=== PATIENT | male | born 1975 | race Asian ===

== ENCOUNTER 2019-01-26 18:05 | Inpatient (IN) | payer MEDICARE ==
[~2019-01-26] VITALS: Ht 167.6 cm; Wt 90.3 kg
[2019-01-26 19:05] VITALS: BP 117/86
[2019-01-26] MEDS ORDERED: PNEUMOCOCCAL VACCINE POLYVALENT 0.5 ML VIAL [PPSV23] IM ONE (20:15)
[2019-01-26] MEDS ORDERED: SENNA 187 MG TABLET PO PRN (20:30)
[2019-01-26] MEDS: ATORVASTATIN CALCIUM 40 MG TABLET PO SCH (21:57)
[2019-01-26] MEDS: CARVEDILOL 25 MG TABLET PO SCH (21:57)
[2019-01-26] MEDS: MELATONIN 5 MG TABLET PO PRN (21:58)
[2019-01-26] MEDS: DOCUSATE SODIUM 250 MG CAPSULE PO SCH (21:58)
[2019-01-26] MEDS: LevETIRAcetam 250 MG TABLET PO SCH (21:58)
[2019-01-26] MEDS: DOXAZOSIN MESYLATE 2 MG TABLET PO SCH (21:58)
[2019-01-26 23:43] VITALS: BP 123/71
[2019-01-27 06:10] LABS: BASOPHILS % (AUTO) 0.7 % (0.0-2.0); EOSINOPHILS % (AUTO) 4.3 % (1.0-6.0); HEMATOCRIT 36.1 % (41-53); HEMOGLOBIN 11.9 g/dL (13.5-17.5); LYMPHOCYTES # (AUTO) 1.5 K/uL (1.0-4.8); LYMPHOCYTES % (AUTO) 17.1 % (22.0-44.0); MEAN CORPUSCULAR HEMOGLOBIN 26.4 pg (26.0-34.0); MEAN CORPUSCULAR HGB CONC 33.1 G/dL (31.0-37.0); MEAN CORPUSCULAR VOLUME 80 fL (80-100); MONOCYTES # (AUTO) 0.5 K/uL (0.1-1.0); NEUTROPHILS # (AUTO) 6.2 K/uL (1.8-7.7); NEUTROPHILS % (AUTO) 71.9 % (40.0-70.0); PLATELET COUNT (AUTO) 261 K/uL (150-450); RED BLOOD CELL COUNT(AUTO) 4.53 MIL/uL (4.50-5.90); RED CELL DISTRIBUTION WIDTH 14.2 % (11.5-14.5)
[2019-01-27 06:38] LABS: ALANINE AMINOTRANSFERASE 39 U/L (12-78); ALBUMIN 3.4 g/dL (3.4-5.0); ALKALINE PHOSPHATASE 113 U/L (46-116); ANION GAP 8 mmol/L (8-16); ASPARTATE AMINOTRANSFERASE 19 U/L (15-37); BILIRUBIN,TOTAL 0.4 mg/dL (0.1-1.0); CALCIUM, TOTAL 9.2 mg/dL (8.8-10.5); CARBON DIOXIDE 29 mmol/L (22-29); CHLORIDE 104 mmol/L (98-107); CREATININE 1.07 mg/dL (0.60-1.30); GLOMERULAR FILTR. RATE CALC > 60 mL/min (>60); GLUCOSE,RANDOM 81 mg/dL (70-110); POTASSIUM 3.4 mmol/L (3.5-5.1); SODIUM SERUM 141 mmol/L (136-145); TOTAL PROTEIN, SERUM 7.8 g/dL (6.4-8.2); UREA NITROGEN, BLOOD 16 mg/dL (7-18)
[2019-01-27 07:55] VITALS: BP 111/76
[2019-01-27 08:10] VITALS: BP 121/76
[2019-01-27] MEDS: CARVEDILOL 25 MG TABLET PO SCH ×2 (08:10→21:00)
[2019-01-27] MEDS: PRENATAL VIT#96/FERROUS FUM/FA TABLET PO SCH (08:10)
[2019-01-27] MEDS: LOSARTAN POTASSIUM 50 MG TABLET PO SCH (08:11)
[2019-01-27] MEDS: LevETIRAcetam 250 MG TABLET PO SCH ×2 (08:11→20:34)
[2019-01-27] MEDS: AmLODIPine BESYLATE 10 MG TABLET PO SCH (08:11)
[2019-01-27] MEDS ORDERED: ATORVASTATIN CALCIUM 40 MG TABLET PO SCH (09:00)
[2019-01-27] MEDS ORDERED: DOXAZOSIN MESYLATE 2 MG TABLET PO SCH (09:00)
[2019-01-27 12:39] LABS: GLUCOMETER DEV NAME(LOC) 2WR.2; GLUCOSE,POINT OF CARE 89 MG/DL (70-110)
[2019-01-27] MEDS: POTASSIUM CHLORIDE 20 MEQ ER TABLET PO SCH ×2 (13:46→20:34)
[2019-01-27 15:59] LABS: GLUCOMETER DEV NAME(LOC) 2WR.2; GLUCOSE,POINT OF CARE 82 MG/DL (70-110)
[2019-01-27 16:01] VITALS: BP 122/64
[2019-01-27 20:26] VITALS: BP 99/58
[2019-01-27] MEDS: DOCUSATE SODIUM 250 MG CAPSULE PO SCH (20:34)
[2019-01-27] MEDS: ATORVASTATIN CALCIUM 40 MG TABLET PO SCH (20:34)
[2019-01-27] MEDS: COLD CREAM, SKIN EMOLLIENT 340 GM JAR TP SCH (20:36)
[2019-01-27] MEDS: DOXAZOSIN MESYLATE 2 MG TABLET PO SCH (21:00)
[2019-01-27] MEDS: MELATONIN 5 MG TABLET PO PRN (21:22)
[2019-01-27 21:29] LABS: GLUCOMETER DEV NAME(LOC) 2WR.2; GLUCOSE,POINT OF CARE 130 MG/DL (70-110)
[2019-01-27 23:22] VITALS: BP 96/58
[2019-01-28] MEDS: PANTOPRAZOLE SODIUM 40 MG DR TABLET PO SCH (05:55)
[2019-01-28 06:20] LABS: GLUCOMETER DEV NAME(LOC) 2WR.1; GLUCOSE,POINT OF CARE 88 MG/DL (70-110)
[2019-01-28 06:44] LABS: BASOPHILS % (AUTO) 0.5 % (0.0-2.0); EOSINOPHILS % (AUTO) 4.3 % (1.0-6.0); HEMATOCRIT 36.3 % (41-53); HEMOGLOBIN 12.1 g/dL (13.5-17.5); LYMPHOCYTES # (AUTO) 1.5 K/uL (1.0-4.8); MEAN CORPUSCULAR HEMOGLOBIN 26.6 pg (26.0-34.0); MEAN CORPUSCULAR HGB CONC 33.4 G/dL (31.0-37.0); MEAN CORPUSCULAR VOLUME 80 fL (80-100); MONOCYTES # (AUTO) 0.6 K/uL (0.1-1.0); MONOCYTES % (AUTO) 6.7 % (2.0-9.0); NEUTROPHILS # (AUTO) 6.1 K/uL (1.8-7.7); NEUTROPHILS % (AUTO) 71.5 % (40.0-70.0); PLATELET COUNT (AUTO) 264 K/uL (150-450); RED BLOOD CELL COUNT(AUTO) 4.56 MIL/uL (4.50-5.90); RED CELL DISTRIBUTION WIDTH 14.2 % (11.5-14.5)
[2019-01-28 06:59] LABS: HEMOGLOBIN A1C 5.8 % (4.5-6.2)
[2019-01-28 07:18] LABS: ANION GAP 9 mmol/L (8-16); CARBON DIOXIDE 28 mmol/L (22-29); CHLORIDE 104 mmol/L (98-107); CREATININE 0.99 mg/dL (0.60-1.30); GLOMERULAR FILTR. RATE CALC > 60 mL/min (>60); GLUCOSE,RANDOM 82 mg/dL (70-110); SODIUM SERUM 141 mmol/L (136-145); UREA NITROGEN, BLOOD 17 mg/dL (7-18)
[2019-01-28 08:35] VITALS: BP 113/69
[2019-01-28] MEDS: LOSARTAN POTASSIUM 50 MG TABLET PO SCH (09:00)
[2019-01-28] MEDS: COLD CREAM, SKIN EMOLLIENT 340 GM JAR TP SCH ×2 (09:00→20:23)
[2019-01-28] MEDS: CARVEDILOL 25 MG TABLET PO SCH ×2 (09:00→20:23)
[2019-01-28] MEDS: PRENATAL VIT#96/FERROUS FUM/FA TABLET PO SCH (09:48)
[2019-01-28] MEDS: AmLODIPine BESYLATE 10 MG TABLET PO SCH (09:48)
[2019-01-28] MEDS: LevETIRAcetam 250 MG TABLET PO SCH ×2 (09:48→20:23)
[2019-01-28 13:59] VITALS: BP 103/65
[2019-01-28 15:52] VITALS: BP 115/74
[2019-01-28 17:54] LABS: GLUCOMETER DEV NAME(LOC) 2WR.1; GLUCOSE,POINT OF CARE 72 MG/DL (70-110)
[2019-01-28 20:20] VITALS: BP 118/70
[2019-01-28] MEDS: ATORVASTATIN CALCIUM 40 MG TABLET PO SCH (20:23)
[2019-01-28] MEDS: DOXAZOSIN MESYLATE 2 MG TABLET PO SCH (20:23)
[2019-01-28] MEDS: DOCUSATE SODIUM 250 MG CAPSULE PO SCH (20:23)
[2019-01-28] MEDS: MELATONIN 5 MG TABLET PO PRN (22:28)
[2019-01-28 23:36] VITALS: BP 111/71
[2019-01-29] MEDS: PANTOPRAZOLE SODIUM 40 MG DR TABLET PO SCH (06:19)
[2019-01-29 06:30] LABS: GLUCOMETER DEV NAME(LOC) 2WR.1; GLUCOSE,POINT OF CARE 81 MG/DL (70-110)
[2019-01-29 07:10] VITALS: BP 118/70
[2019-01-29] MEDS: LevETIRAcetam 250 MG TABLET PO SCH ×2 (09:36→20:11)
[2019-01-29] MEDS: LOSARTAN POTASSIUM 50 MG TABLET PO SCH (09:36)
[2019-01-29] MEDS: CARVEDILOL 25 MG TABLET PO SCH ×2 (09:36→20:12)
[2019-01-29] MEDS: AmLODIPine BESYLATE 10 MG TABLET PO SCH (09:37)
[2019-01-29] MEDS: MULTIVITAMINS WITH MINERALS, THERAPEUTIC TABLET PO SCH (09:38)
[2019-01-29] MEDS: COLD CREAM, SKIN EMOLLIENT 340 GM JAR TP SCH ×2 (09:39→20:12)
[2019-01-29] MEDS ORDERED: POLYETHYLENE GLYCOL 3350 17 GM PACKET PO PRN (09:45)
[2019-01-29 09:54] LABS: APPEARANCE,URINE CLOUDY (CLEAR); BILIRUBIN,URINE NEGATIVE (NEGATIVE); GLUCOSE, URINE (UA) NEGATIVE (NEGATIVE); KETONES,URINE NEGATIVE (NEGATIVE); NITRATE,URINE POSITIVE (NEGATIVE); PROTEIN,URINE POS 1+ (NEGATIVE)
[2019-01-29 10:07] LABS: LEUKOCYTE ESTERASE ,URINE MODERATE (NEGATIVE)
[2019-01-29 10:08] LABS: BACTERIA,URINE Many /HPF (None Seen); OCCULT BLOOD,URINE TRACE (NEGATIVE); RBC,URINE 0-2 /HPF (0-2)
[2019-01-29] MEDS ORDERED: METF-960 PO (11:36)
[2019-01-29] MEDS ORDERED: LOSA50TA64 PO (11:36)
[2019-01-29] MEDS ORDERED: CARV25 PO (11:36)
[2019-01-29] MEDS ORDERED: PRAV40TA4 PO (11:36)
[2019-01-29] MEDS ORDERED: AMLO-512 PO (11:36)
[2019-01-29 15:07] VITALS: BP 115/70
[2019-01-29] MEDS: ACETAMINOPHEN 325 MG TABLET PO PRN (17:21)
[2019-01-29 17:40] LABS: GLUCOMETER DEV NAME(LOC) 2WR.1; GLUCOSE,POINT OF CARE 83 MG/DL (70-110)
[2019-01-29 20:06] VITALS: BP 115/83
[2019-01-29] MEDS: DOXAZOSIN MESYLATE 2 MG TABLET PO SCH (20:11)
[2019-01-29] MEDS: SENNA 187 MG TABLET PO SCH (20:11)
[2019-01-29] MEDS: MELATONIN 5 MG TABLET PO PRN (20:12)
[2019-01-29] MEDS: ATORVASTATIN CALCIUM 40 MG TABLET PO SCH (20:12)
[2019-01-29] MEDS: DOCUSATE SODIUM 250 MG CAPSULE PO SCH (20:12)
[2019-01-29] MEDS: SULFAMETHOX/TRIMETH DS 800-160 MG/TABLET PO SCH (20:12)
[2019-01-29 23:16] VITALS: BP 109/63
[2019-01-30 05:49] LABS: GLUCOMETER DEV NAME(LOC) 2WR.2; GLUCOSE,POINT OF CARE 88 MG/DL (70-110)
[2019-01-30] MEDS: PANTOPRAZOLE SODIUM 40 MG DR TABLET PO SCH (06:07)
[2019-01-30 06:23] LABS: BASOPHILS % (AUTO) 0.2 % (0.0-2.0); EOSINOPHILS % (AUTO) 0.9 % (1.0-6.0); HEMATOCRIT 33.3 % (41-53); LYMPHOCYTES # (AUTO) 1.1 K/uL (1.0-4.8); LYMPHOCYTES % (AUTO) 8.7 % (22.0-44.0); MEAN CORPUSCULAR HEMOGLOBIN 26.4 pg (26.0-34.0); MEAN CORPUSCULAR VOLUME 80 fL (80-100); MONOCYTES % (AUTO) 8.1 % (2.0-9.0); NEUTROPHILS # (AUTO) 10.4 K/uL (1.8-7.7); NEUTROPHILS % (AUTO) 82.1 % (40.0-70.0); PLATELET COUNT (AUTO) 229 K/uL (150-450); RED BLOOD CELL COUNT(AUTO) 4.17 MIL/uL (4.50-5.90); RED CELL DISTRIBUTION WIDTH 14.4 % (11.5-14.5)
[2019-01-30 06:36] LABS: CREATININE 1.33 mg/dL (0.60-1.30); POTASSIUM 3.7 mmol/L (3.5-5.1)
[2019-01-30 08:30] VITALS: BP 116/75
[2019-01-30] MEDS: LevETIRAcetam 250 MG TABLET PO SCH ×2 (08:34→20:47)
[2019-01-30] MEDS: DOCUSATE SODIUM 250 MG CAPSULE PO SCH ×2 (08:34→20:48)
[2019-01-30] MEDS: ACETAMINOPHEN 325 MG TABLET PO PRN (08:34)
[2019-01-30] MEDS: AmLODIPine BESYLATE 10 MG TABLET PO SCH (08:35)
[2019-01-30] MEDS: LOSARTAN POTASSIUM 50 MG TABLET PO SCH (08:35)
[2019-01-30] MEDS: COLD CREAM, SKIN EMOLLIENT 340 GM JAR TP SCH ×2 (08:35→20:48)
[2019-01-30] MEDS: MULTIVITAMINS WITH MINERALS, THERAPEUTIC TABLET PO SCH (08:35)
[2019-01-30] MEDS: CARVEDILOL 25 MG TABLET PO SCH ×2 (08:35→20:48)
[2019-01-30] MEDS: SULFAMETHOX/TRIMETH DS 800-160 MG/TABLET PO SCH ×2 (08:35→20:48)
[2019-01-30 16:30] VITALS: BP 103/68
[2019-01-30] MEDS ORDERED: DOXA2TAB PO (16:36)
[2019-01-30] MEDS ORDERED: ATOR40TA28 PO (16:37)
[2019-01-30 17:19] LABS: GLUCOMETER DEV NAME(LOC) 2WR.2; GLUCOSE,POINT OF CARE 87 MG/DL (70-110)
[2019-01-30 20:45] VITALS: BP 104/63
[2019-01-30] MEDS: ATORVASTATIN CALCIUM 40 MG TABLET PO SCH (20:47)
[2019-01-30] MEDS: DOXAZOSIN MESYLATE 2 MG TABLET PO SCH (20:47)
[2019-01-30] MEDS: MELATONIN 5 MG TABLET PO PRN (20:47)
[2019-01-30] MEDS: SENNA 187 MG TABLET PO SCH (20:48)
[2019-01-30 21:12] LABS: GLUCOMETER DEV NAME(LOC) 2WR.1; GLUCOSE,POINT OF CARE 73 MG/DL (70-110)
[2019-01-31 04:45] VITALS: BP 95/57
[2019-01-31] MEDS: PANTOPRAZOLE SODIUM 40 MG DR TABLET PO SCH (06:01)
[2019-01-31 06:15] LABS: GLUCOMETER DEV NAME(LOC) 2WR.2; GLUCOSE,POINT OF CARE 83 MG/DL (70-110)
[2019-01-31 08:03] VITALS: BP 96/55
[2019-01-31] MEDS: SULFAMETHOX/TRIMETH DS 800-160 MG/TABLET PO SCH (08:17)
[2019-01-31] MEDS: MULTIVITAMINS WITH MINERALS, THERAPEUTIC TABLET PO SCH (08:17)
[2019-01-31] MEDS: DOCUSATE SODIUM 250 MG CAPSULE PO SCH ×2 (08:17→20:22)
[2019-01-31] MEDS: LevETIRAcetam 250 MG TABLET PO SCH ×2 (08:17→20:23)
[2019-01-31] MEDS: AmLODIPine BESYLATE 10 MG TABLET PO SCH (09:00)
[2019-01-31] MEDS: CARVEDILOL 25 MG TABLET PO SCH ×2 (09:00→21:18)
[2019-01-31] MEDS: LOSARTAN POTASSIUM 50 MG TABLET PO SCH (09:00)
[2019-01-31] MEDS: COLD CREAM, SKIN EMOLLIENT 340 GM JAR TP SCH ×2 (10:00→20:23)
[2019-01-31] MEDS: CIPROFLOXACIN HCL 250 MG TABLET PO SCH ×2 (10:17→20:22)
[2019-01-31 17:14] LABS: GLUCOMETER DEV NAME(LOC) 2WR.1; GLUCOSE,POINT OF CARE 96 MG/DL (70-110)
[2019-01-31 17:16] VITALS: BP 101/53
[2019-01-31 20:20] VITALS: BP 101/57
[2019-01-31] MEDS: ATORVASTATIN CALCIUM 40 MG TABLET PO SCH (20:22)
[2019-01-31] MEDS: SENNA 187 MG TABLET PO SCH (20:23)
[2019-01-31 21:16] VITALS: BP 121/77
[2019-01-31] MEDS: DOXAZOSIN MESYLATE 2 MG TABLET PO SCH (21:18)
[2019-01-31] MEDS: MELATONIN 5 MG TABLET PO PRN (23:03)
[2019-01-31 23:06] VITALS: BP 110/67
[2019-02-01] MEDS: PANTOPRAZOLE SODIUM 40 MG DR TABLET PO SCH (05:55)
[2019-02-01 06:14] LABS: GLUCOMETER DEV NAME(LOC) 2WR.2; GLUCOSE,POINT OF CARE 84 MG/DL (70-110)
[2019-02-01 06:37] LABS: BASOPHILS % (AUTO) 0.3 % (0.0-2.0); EOSINOPHILS % (AUTO) 3.7 % (1.0-6.0); HEMOGLOBIN 10.7 g/dL (13.5-17.5); LYMPHOCYTES # (AUTO) 0.9 K/uL (1.0-4.8); LYMPHOCYTES % (AUTO) 11.9 % (22.0-44.0); MEAN CORPUSCULAR HEMOGLOBIN 26.7 pg (26.0-34.0); MEAN CORPUSCULAR HGB CONC 33.4 G/dL (31.0-37.0); MEAN CORPUSCULAR VOLUME 80 fL (80-100); MONOCYTES # (AUTO) 0.8 K/uL (0.1-1.0); MONOCYTES % (AUTO) 10.6 % (2.0-9.0); NEUTROPHILS # (AUTO) 5.5 K/uL (1.8-7.7); NEUTROPHILS % (AUTO) 73.5 % (40.0-70.0); PLATELET COUNT (AUTO) 246 K/uL (150-450); RED CELL DISTRIBUTION WIDTH 14.3 % (11.5-14.5)
[2019-02-01 07:00] VITALS: BP 107/70
[2019-02-01] MEDS: CARVEDILOL 25 MG TABLET PO SCH ×2 (08:24→20:16)
[2019-02-01] MEDS: CIPROFLOXACIN HCL 250 MG TABLET PO SCH ×2 (08:24→20:16)
[2019-02-01] MEDS: MULTIVITAMINS WITH MINERALS, THERAPEUTIC TABLET PO SCH (08:24)
[2019-02-01] MEDS: AmLODIPine BESYLATE 5 MG TABLET PO SCH (08:25)
[2019-02-01] MEDS: LOSARTAN POTASSIUM 50 MG TABLET PO SCH (08:25)
[2019-02-01] MEDS: COLD CREAM, SKIN EMOLLIENT 340 GM JAR TP SCH ×2 (08:25→20:16)
[2019-02-01] MEDS: DOCUSATE SODIUM 250 MG CAPSULE PO SCH ×2 (08:25→20:16)
[2019-02-01] MEDS: LevETIRAcetam 250 MG TABLET PO SCH ×2 (08:25→20:16)
[2019-02-01 15:06] VITALS: BP 113/80
[2019-02-01 17:50] LABS: GLUCOMETER DEV NAME(LOC) 2WR.1; GLUCOSE,POINT OF CARE 71 MG/DL (70-110)
[2019-02-01 20:14] VITALS: BP 118/73
[2019-02-01] MEDS: ATORVASTATIN CALCIUM 40 MG TABLET PO SCH (20:16)
[2019-02-01] MEDS: SENNA 187 MG TABLET PO SCH (20:16)
[2019-02-01] MEDS: DOXAZOSIN MESYLATE 2 MG TABLET PO SCH (20:16)
[2019-02-01] MEDS: MELATONIN 5 MG TABLET PO PRN (22:01)
[2019-02-01 23:38] VITALS: BP 110/67
[2019-02-02] MEDS: PANTOPRAZOLE SODIUM 40 MG DR TABLET PO SCH (06:08)
[2019-02-02 06:35] LABS: GLUCOMETER DEV NAME(LOC) 2WR.1; GLUCOSE,POINT OF CARE 82 MG/DL (70-110)
[2019-02-02 07:56] VITALS: BP 115/68
[2019-02-02] MEDS: LevETIRAcetam 250 MG TABLET PO SCH ×2 (10:14→20:38)
[2019-02-02] MEDS: MULTIVITAMINS WITH MINERALS, THERAPEUTIC TABLET PO SCH (10:14)
[2019-02-02] MEDS: LOSARTAN POTASSIUM 50 MG TABLET PO SCH (10:14)
[2019-02-02] MEDS: DOCUSATE SODIUM 250 MG CAPSULE PO SCH ×2 (10:14→20:39)
[2019-02-02] MEDS: CIPROFLOXACIN HCL 250 MG TABLET PO SCH ×2 (10:14→20:39)
[2019-02-02] MEDS: COLD CREAM, SKIN EMOLLIENT 340 GM JAR TP SCH ×2 (10:14→20:39)
[2019-02-02] MEDS: AmLODIPine BESYLATE 5 MG TABLET PO SCH (10:14)
[2019-02-02] MEDS: CARVEDILOL 25 MG TABLET PO SCH ×2 (10:14→20:38)
[2019-02-02 16:23] VITALS: BP 111/71
[2019-02-02 17:54] LABS: GLUCOMETER DEV NAME(LOC) 2WR.1; GLUCOSE,POINT OF CARE 80 MG/DL (70-110)
[2019-02-02 20:34] VITALS: BP 127/68
[2019-02-02] MEDS: DOXAZOSIN MESYLATE 2 MG TABLET PO SCH (20:38)
[2019-02-02] MEDS: SENNA 187 MG TABLET PO SCH (20:38)
[2019-02-02] MEDS: ATORVASTATIN CALCIUM 40 MG TABLET PO SCH (20:38)
[2019-02-02] MEDS: MELATONIN 5 MG TABLET PO PRN (20:39)
[2019-02-03 05:20] VITALS: BP 112/71
[2019-02-03] MEDS: PANTOPRAZOLE SODIUM 40 MG DR TABLET PO SCH (05:56)
[2019-02-03 05:59] LABS: GLUCOMETER DEV NAME(LOC) 2WR.2; GLUCOSE,POINT OF CARE 79 MG/DL (70-110)
[2019-02-03 07:52] VITALS: BP 126/75
[2019-02-03] MEDS: MULTIVITAMINS WITH MINERALS, THERAPEUTIC TABLET PO SCH (08:16)
[2019-02-03] MEDS: CARVEDILOL 25 MG TABLET PO SCH ×2 (08:16→21:04)
[2019-02-03] MEDS: AmLODIPine BESYLATE 5 MG TABLET PO SCH (08:16)
[2019-02-03] MEDS: DOCUSATE SODIUM 250 MG CAPSULE PO SCH ×2 (08:16→21:04)
[2019-02-03] MEDS: LOSARTAN POTASSIUM 50 MG TABLET PO SCH (08:16)
[2019-02-03] MEDS: COLD CREAM, SKIN EMOLLIENT 340 GM JAR TP SCH ×2 (08:17→21:05)
[2019-02-03] MEDS: LevETIRAcetam 250 MG TABLET PO SCH ×2 (08:17→21:04)
[2019-02-03] MEDS: CIPROFLOXACIN HCL 250 MG TABLET PO SCH ×2 (08:17→21:04)
[2019-02-03 15:30] VITALS: BP 108/62
[2019-02-03 20:30] VITALS: BP 144/94
[2019-02-03] MEDS: SENNA 187 MG TABLET PO SCH (21:04)
[2019-02-03] MEDS: ATORVASTATIN CALCIUM 40 MG TABLET PO SCH (21:04)
[2019-02-03] MEDS: DOXAZOSIN MESYLATE 2 MG TABLET PO SCH (21:04)
[2019-02-03] MEDS: MELATONIN 5 MG TABLET PO PRN (23:33)
[2019-02-03 23:35] VITALS: BP 134/81
[2019-02-04] MEDS: PANTOPRAZOLE SODIUM 40 MG DR TABLET PO SCH (06:44)
[2019-02-04 08:53] VITALS: BP 120/81
[2019-02-04] MEDS: AmLODIPine BESYLATE 5 MG TABLET PO SCH (09:27)
[2019-02-04] MEDS: DOCUSATE SODIUM 250 MG CAPSULE PO SCH ×2 (09:27→20:18)
[2019-02-04] MEDS: LevETIRAcetam 250 MG TABLET PO SCH ×2 (09:27→20:18)
[2019-02-04] MEDS: CARVEDILOL 25 MG TABLET PO SCH ×2 (09:27→20:19)
[2019-02-04] MEDS: CIPROFLOXACIN HCL 250 MG TABLET PO SCH ×2 (09:27→20:18)
[2019-02-04] MEDS: MULTIVITAMINS WITH MINERALS, THERAPEUTIC TABLET PO SCH (09:27)
[2019-02-04] MEDS: LOSARTAN POTASSIUM 50 MG TABLET PO SCH (09:28)
[2019-02-04] MEDS: COLD CREAM, SKIN EMOLLIENT 340 GM JAR TP SCH ×2 (09:28→20:19)
[2019-02-04 15:00] VITALS: BP 126/72
[2019-02-04 20:17] VITALS: BP 142/84
[2019-02-04] MEDS: ATORVASTATIN CALCIUM 40 MG TABLET PO SCH (20:18)
[2019-02-04] MEDS: DOXAZOSIN MESYLATE 2 MG TABLET PO SCH (20:18)
[2019-02-04] MEDS: SENNA 187 MG TABLET PO SCH (20:18)
[2019-02-04] MEDS: MELATONIN 5 MG TABLET PO PRN (22:43)
[2019-02-05] VITALS: BP 151/88
[2019-02-05] MEDS: PANTOPRAZOLE SODIUM 40 MG DR TABLET PO SCH (05:44)
[2019-02-05 07:00] VITALS: BP 134/91
[2019-02-05] MEDS: LOSARTAN POTASSIUM 50 MG TABLET PO SCH (09:18)
[2019-02-05] MEDS: COLD CREAM, SKIN EMOLLIENT 340 GM JAR TP SCH ×2 (09:18→20:27)
[2019-02-05] MEDS: LevETIRAcetam 250 MG TABLET PO SCH ×2 (09:18→20:27)
[2019-02-05] MEDS: MULTIVITAMINS WITH MINERALS, THERAPEUTIC TABLET PO SCH (09:18)
[2019-02-05] MEDS: AmLODIPine BESYLATE 5 MG TABLET PO SCH (09:18)
[2019-02-05] MEDS: DOCUSATE SODIUM 250 MG CAPSULE PO SCH ×2 (09:19→20:27)
[2019-02-05] MEDS: CIPROFLOXACIN HCL 250 MG TABLET PO SCH ×2 (09:19→20:27)
[2019-02-05] MEDS: CARVEDILOL 25 MG TABLET PO SCH ×2 (09:19→20:27)
[2019-02-05 15:53] VITALS: BP 117/71
[2019-02-05 20:21] VITALS: BP 143/93
[2019-02-05] MEDS: ATORVASTATIN CALCIUM 40 MG TABLET PO SCH (20:27)
[2019-02-05] MEDS: DOXAZOSIN MESYLATE 2 MG TABLET PO SCH (20:27)
[2019-02-05] MEDS: SENNA 187 MG TABLET PO SCH (20:27)
[2019-02-05] MEDS: MELATONIN 5 MG TABLET PO PRN (22:39)
[2019-02-06] VITALS: BP 147/84
[2019-02-06] MEDS: PANTOPRAZOLE SODIUM 40 MG DR TABLET PO SCH (06:34)
[2019-02-06 07:50] VITALS: BP 131/85
[2019-02-06] MEDS: CIPROFLOXACIN HCL 250 MG TABLET PO SCH ×2 (09:10→21:14)
[2019-02-06] MEDS: AmLODIPine BESYLATE 5 MG TABLET PO SCH (09:10)
[2019-02-06] MEDS: MULTIVITAMINS WITH MINERALS, THERAPEUTIC TABLET PO SCH (09:10)
[2019-02-06] MEDS: LOSARTAN POTASSIUM 50 MG TABLET PO SCH (09:10)
[2019-02-06] MEDS: CARVEDILOL 25 MG TABLET PO SCH ×2 (09:10→21:00)
[2019-02-06] MEDS: LevETIRAcetam 250 MG TABLET PO SCH (09:10)
[2019-02-06] MEDS: DOCUSATE SODIUM 250 MG CAPSULE PO SCH ×2 (09:10→21:15)
[2019-02-06] MEDS: COLD CREAM, SKIN EMOLLIENT 340 GM JAR TP SCH ×2 (09:11→21:15)
[2019-02-06 15:44] VITALS: BP 135/85
[2019-02-06] MEDS: DOXAZOSIN MESYLATE 2 MG TABLET PO SCH (21:00)
[2019-02-06 21:13] VITALS: BP 135/78
[2019-02-06] MEDS: ATORVASTATIN CALCIUM 40 MG TABLET PO SCH (21:14)
[2019-02-06] MEDS: SENNA 187 MG TABLET PO SCH (21:15)
[2019-02-06] MEDS: MELATONIN 5 MG TABLET PO PRN (21:15)
[2019-02-07 05:00] VITALS: BP 144/87
[2019-02-07] MEDS: PANTOPRAZOLE SODIUM 40 MG DR TABLET PO SCH (05:55)
[2019-02-07 07:30] VITALS: BP 142/84
[2019-02-07] MEDS: CARVEDILOL 25 MG TABLET PO SCH ×3 (09:00→20:36)
[2019-02-07] MEDS: AmLODIPine BESYLATE 5 MG TABLET PO SCH (09:28)
[2019-02-07] MEDS: MULTIVITAMINS WITH MINERALS, THERAPEUTIC TABLET PO SCH (09:29)
[2019-02-07] MEDS: LOSARTAN POTASSIUM 50 MG TABLET PO SCH (09:29)
[2019-02-07] MEDS: DOCUSATE SODIUM 250 MG CAPSULE PO SCH ×2 (09:29→20:36)
[2019-02-07] MEDS: COLD CREAM, SKIN EMOLLIENT 340 GM JAR TP SCH ×2 (09:30→20:36)
[2019-02-07 11:12] LABS: APPEARANCE,URINE CLEAR (CLEAR); BILIRUBIN,URINE NEGATIVE (NEGATIVE); GLUCOSE, URINE (UA) NEGATIVE (NEGATIVE); KETONES,URINE NEGATIVE (NEGATIVE); LEUKOCYTE ESTERASE ,URINE NEGATIVE (NEGATIVE); NITRATE,URINE NEGATIVE (NEGATIVE); OCCULT BLOOD,URINE NEGATIVE (NEGATIVE); PROTEIN,URINE NEGATIVE (NEGATIVE); UROBILINOGEN,URINE 0.2 mg/dL (<=1.0)
[2019-02-07 16:34] VITALS: BP 137/99
[2019-02-07] MEDS ORDERED: ATOR40TA28 PO (17:53)
[2019-02-07] MEDS ORDERED: PANT40TA25 PO (17:53)
[2019-02-07] MEDS ORDERED: AMLO-511 PO (17:54)
[2019-02-07] MEDS ORDERED: DOCU250C91 PO (17:54)
[2019-02-07] MEDS ORDERED: MULT-1239 PO (17:54)
[2019-02-07 20:24] VITALS: BP 142/95
[2019-02-07] MEDS: SENNA 187 MG TABLET PO SCH (20:36)
[2019-02-07] MEDS: DOXAZOSIN MESYLATE 2 MG TABLET PO SCH (20:36)
[2019-02-07] MEDS: MELATONIN 5 MG TABLET PO PRN (20:36)
[2019-02-07] MEDS: ATORVASTATIN CALCIUM 40 MG TABLET PO SCH (20:36)
[2019-02-07 23:32] VITALS: BP 125/79
[2019-02-08] MEDS: PANTOPRAZOLE SODIUM 40 MG DR TABLET PO SCH (06:02)
[2019-02-08 08:35] VITALS: BP 132/91
[2019-02-08] MEDS: CARVEDILOL 25 MG TABLET PO SCH ×2 (09:36→20:22)
[2019-02-08] MEDS: COLD CREAM, SKIN EMOLLIENT 340 GM JAR TP SCH ×2 (09:36→20:22)
[2019-02-08] MEDS: LOSARTAN POTASSIUM 50 MG TABLET PO SCH (09:36)
[2019-02-08] MEDS: DOCUSATE SODIUM 250 MG CAPSULE PO SCH ×2 (09:36→20:22)
[2019-02-08] MEDS: AmLODIPine BESYLATE 5 MG TABLET PO SCH (09:36)
[2019-02-08] MEDS: MULTIVITAMINS WITH MINERALS, THERAPEUTIC TABLET PO SCH (09:36)
[2019-02-08 15:15] VITALS: BP 122/77
[2019-02-08 20:16] VITALS: BP 136/81
[2019-02-08] MEDS: SENNA 187 MG TABLET PO SCH (20:22)
[2019-02-08] MEDS: ATORVASTATIN CALCIUM 40 MG TABLET PO SCH (20:22)
[2019-02-08] MEDS: DOXAZOSIN MESYLATE 2 MG TABLET PO SCH (20:22)
[2019-02-08 23:58] VITALS: BP 133/86
[2019-02-08] MEDS: MELATONIN 5 MG TABLET PO PRN (23:58)
[2019-02-09] MEDS: PANTOPRAZOLE SODIUM 40 MG DR TABLET PO SCH (06:37)
[2019-02-09 07:55] VITALS: BP 135/87
[2019-02-09] MEDS: DOCUSATE SODIUM 250 MG CAPSULE PO SCH ×2 (09:13→21:51)
[2019-02-09] MEDS: AmLODIPine BESYLATE 5 MG TABLET PO SCH (09:13)
[2019-02-09] MEDS: CARVEDILOL 25 MG TABLET PO SCH ×2 (09:13→21:00)
[2019-02-09] MEDS: MULTIVITAMINS WITH MINERALS, THERAPEUTIC TABLET PO SCH (09:13)
[2019-02-09] MEDS: LOSARTAN POTASSIUM 50 MG TABLET PO SCH (09:13)
[2019-02-09] MEDS: COLD CREAM, SKIN EMOLLIENT 340 GM JAR TP SCH ×2 (09:14→21:52)
[2019-02-09 16:25] VITALS: BP 147/55
[2019-02-09] MEDS: DOXAZOSIN MESYLATE 2 MG TABLET PO SCH (21:51)
[2019-02-09] MEDS: ATORVASTATIN CALCIUM 40 MG TABLET PO SCH (21:51)
[2019-02-09] MEDS: SENNA 187 MG TABLET PO SCH (21:51)
[2019-02-09 21:59] VITALS: BP 154/93
[2019-02-10 00:58] VITALS: BP 147/86
[2019-02-10] MEDS: PANTOPRAZOLE SODIUM 40 MG DR TABLET PO SCH (06:02)
[2019-02-10 07:45] VITALS: BP 147/81
[2019-02-10] MEDS: AmLODIPine BESYLATE 5 MG TABLET PO SCH (09:54)
[2019-02-10] MEDS: CARVEDILOL 25 MG TABLET PO SCH ×2 (09:54→21:25)
[2019-02-10] MEDS: LOSARTAN POTASSIUM 50 MG TABLET PO SCH (09:54)
[2019-02-10] MEDS: MULTIVITAMINS WITH MINERALS, THERAPEUTIC TABLET PO SCH (09:54)
[2019-02-10] MEDS: DOCUSATE SODIUM 250 MG CAPSULE PO SCH ×2 (09:54→20:41)
[2019-02-10] MEDS: COLD CREAM, SKIN EMOLLIENT 340 GM JAR TP SCH ×2 (09:58→20:45)
[2019-02-10 15:40] VITALS: BP 144/87
[2019-02-10 20:34] VITALS: BP 153/89
[2019-02-10] MEDS: SENNA 187 MG TABLET PO SCH (20:40)
[2019-02-10] MEDS: ATORVASTATIN CALCIUM 40 MG TABLET PO SCH (20:40)
[2019-02-10] MEDS: MELATONIN 5 MG TABLET PO PRN (20:41)
[2019-02-10 21:20] VITALS: BP 132/85
[2019-02-10] MEDS: DOXAZOSIN MESYLATE 2 MG TABLET PO SCH (21:25)
[2019-02-11 05:00] VITALS: BP 145/78
[2019-02-11] MEDS: PANTOPRAZOLE SODIUM 40 MG DR TABLET PO SCH (05:52)
[2019-02-11 06:40] LABS: ANION GAP 9 mmol/L (8-16); CALCIUM, TOTAL 9.3 mg/dL (8.8-10.5); CARBON DIOXIDE 32 mmol/L (22-29); CHLORIDE 99 mmol/L (98-107); CREATININE 1.08 mg/dL (0.60-1.30); GLOMERULAR FILTR. RATE CALC > 60 mL/min (>60); GLUCOSE,RANDOM 87 mg/dL (70-110); POTASSIUM 3.8 mmol/L (3.5-5.1); SODIUM SERUM 140 mmol/L (136-145); UREA NITROGEN, BLOOD 16 mg/dL (7-18)
[2019-02-11 06:41] LABS: BASOPHILS % (AUTO) 0.5 % (0.0-2.0); EOSINOPHILS % (AUTO) 4.3 % (1.0-6.0); HEMATOCRIT 36.1 % (41-53); HEMOGLOBIN 11.9 g/dL (13.5-17.5); LYMPHOCYTES # (AUTO) 1.4 K/uL (1.0-4.8); LYMPHOCYTES % (AUTO) 17.6 % (22.0-44.0); MEAN CORPUSCULAR HEMOGLOBIN 26.4 pg (26.0-34.0); MEAN CORPUSCULAR HGB CONC 33.1 G/dL (31.0-37.0); MEAN CORPUSCULAR VOLUME 80 fL (80-100); MONOCYTES # (AUTO) 0.4 K/uL (0.1-1.0); MONOCYTES % (AUTO) 5.7 % (2.0-9.0); NEUTROPHILS # (AUTO) 5.6 K/uL (1.8-7.7); NEUTROPHILS % (AUTO) 71.9 % (40.0-70.0); PLATELET COUNT (AUTO) 302 K/uL (150-450); RED BLOOD CELL COUNT(AUTO) 4.52 MIL/uL (4.50-5.90); RED CELL DISTRIBUTION WIDTH 14.3 % (11.5-14.5)
[2019-02-11] MEDS: DOCUSATE SODIUM 250 MG CAPSULE PO SCH ×2 (09:00→20:44)
[2019-02-11 09:20] VITALS: BP 124/82
[2019-02-11] MEDS: MULTIVITAMINS WITH MINERALS, THERAPEUTIC TABLET PO SCH (09:54)
[2019-02-11] MEDS: AmLODIPine BESYLATE 5 MG TABLET PO SCH (09:54)
[2019-02-11] MEDS: CARVEDILOL 25 MG TABLET PO SCH ×2 (09:54→20:44)
[2019-02-11] MEDS: LOSARTAN POTASSIUM 50 MG TABLET PO SCH (09:54)
[2019-02-11] MEDS: COLD CREAM, SKIN EMOLLIENT 340 GM JAR TP SCH ×2 (09:55→20:44)
[2019-02-11 15:30] VITALS: BP 120/73
[2019-02-11 20:42] VITALS: BP 152/94
[2019-02-11] MEDS: SENNA 187 MG TABLET PO SCH (20:44)
[2019-02-11] MEDS: DOXAZOSIN MESYLATE 2 MG TABLET PO SCH (20:44)
[2019-02-11] MEDS: ATORVASTATIN CALCIUM 40 MG TABLET PO SCH (20:44)
[2019-02-11] MEDS: MELATONIN 5 MG TABLET PO PRN (20:44)
[2019-02-12 05:00] VITALS: BP 141/80
[2019-02-12] MEDS: PANTOPRAZOLE SODIUM 40 MG DR TABLET PO SCH (05:45)
[2019-02-12 07:17] VITALS: BP 141/79
[2019-02-12] MEDS: CARVEDILOL 25 MG TABLET PO SCH ×2 (08:46→21:14)
[2019-02-12] MEDS: AmLODIPine BESYLATE 5 MG TABLET PO SCH (08:47)
[2019-02-12] MEDS: LOSARTAN POTASSIUM 50 MG TABLET PO SCH (08:47)
[2019-02-12] MEDS: MULTIVITAMINS WITH MINERALS, THERAPEUTIC TABLET PO SCH (08:47)
[2019-02-12] MEDS: DOCUSATE SODIUM 250 MG CAPSULE PO SCH ×2 (08:47→21:13)
[2019-02-12] MEDS: COLD CREAM, SKIN EMOLLIENT 340 GM JAR TP SCH ×2 (08:49→21:14)
[2019-02-12] MEDS: MELATONIN 5 MG TABLET PO PRN (21:14)
[2019-02-12] MEDS: ATORVASTATIN CALCIUM 40 MG TABLET PO SCH (21:14)
[2019-02-12] MEDS: DOXAZOSIN MESYLATE 2 MG TABLET PO SCH (21:14)
[2019-02-12] MEDS: SENNA 187 MG TABLET PO SCH (21:14)
[2019-02-12 21:16] VITALS: BP 148/87
[2019-02-13 05:20] VITALS: BP 138/82
[2019-02-13] MEDS: PANTOPRAZOLE SODIUM 40 MG DR TABLET PO SCH (05:44)
[2019-02-13 07:05] VITALS: BP 141/81
[2019-02-13] MEDS: MULTIVITAMINS WITH MINERALS, THERAPEUTIC TABLET PO SCH (07:46)
[2019-02-13] MEDS: LOSARTAN POTASSIUM 50 MG TABLET PO SCH (07:46)
[2019-02-13] MEDS: CARVEDILOL 25 MG TABLET PO SCH ×2 (07:46→20:01)
[2019-02-13] MEDS: AmLODIPine BESYLATE 5 MG TABLET PO SCH (07:46)
[2019-02-13] MEDS: COLD CREAM, SKIN EMOLLIENT 340 GM JAR TP SCH ×2 (07:46→20:04)
[2019-02-13] MEDS: DOCUSATE SODIUM 250 MG CAPSULE PO SCH ×2 (07:47→20:01)
[2019-02-13 17:30] VITALS: BP 145/97
[2019-02-13] MEDS: ATORVASTATIN CALCIUM 40 MG TABLET PO SCH (20:01)
[2019-02-13] MEDS: SENNA 187 MG TABLET PO SCH (20:01)
[2019-02-13] MEDS: DOXAZOSIN MESYLATE 2 MG TABLET PO SCH (20:01)
[2019-02-13 23:49] VITALS: BP 125/74
[2019-02-14] MEDS: PANTOPRAZOLE SODIUM 40 MG DR TABLET PO SCH (06:09)
[2019-02-14 07:00] VITALS: BP 126/89
[2019-02-14] MEDS: DOCUSATE SODIUM 250 MG CAPSULE PO SCH ×2 (07:56→21:27)
[2019-02-14] MEDS: AmLODIPine BESYLATE 5 MG TABLET PO SCH (07:56)
[2019-02-14] MEDS: LOSARTAN POTASSIUM 50 MG TABLET PO SCH (07:56)
[2019-02-14] MEDS: MULTIVITAMINS WITH MINERALS, THERAPEUTIC TABLET PO SCH (07:56)
[2019-02-14] MEDS: COLD CREAM, SKIN EMOLLIENT 340 GM JAR TP SCH ×2 (07:56→21:27)
[2019-02-14] MEDS: CARVEDILOL 25 MG TABLET PO SCH ×2 (07:56→21:27)
[2019-02-14 16:08] VITALS: BP 134/80
[2019-02-14 21:25] VITALS: BP 151/99
[2019-02-14] MEDS: ATORVASTATIN CALCIUM 40 MG TABLET PO SCH (21:27)
[2019-02-14] MEDS: DOXAZOSIN MESYLATE 2 MG TABLET PO SCH (21:27)
[2019-02-14] MEDS: SENNA 187 MG TABLET PO SCH (21:27)
[2019-02-15 00:14] VITALS: BP 133/90
[2019-02-15] MEDS: PANTOPRAZOLE SODIUM 40 MG DR TABLET PO SCH (06:05)
[2019-02-15 08:33] VITALS: BP 143/90
[2019-02-15] MEDS: CARVEDILOL 25 MG TABLET PO SCH ×2 (08:47→20:14)
[2019-02-15] MEDS: AmLODIPine BESYLATE 5 MG TABLET PO SCH (08:47)
[2019-02-15] MEDS: MULTIVITAMINS WITH MINERALS, THERAPEUTIC TABLET PO SCH (08:47)
[2019-02-15] MEDS: LOSARTAN POTASSIUM 50 MG TABLET PO SCH (08:47)
[2019-02-15] MEDS: COLD CREAM, SKIN EMOLLIENT 340 GM JAR TP SCH ×2 (08:48→20:16)
[2019-02-15] MEDS: DOCUSATE SODIUM 250 MG CAPSULE PO SCH ×2 (08:48→20:15)
[2019-02-15 15:30] VITALS: BP 122/76
[2019-02-15 20:11] VITALS: BP 131/84
[2019-02-15] MEDS: MELATONIN 5 MG TABLET PO PRN (20:14)
[2019-02-15] MEDS: DOXAZOSIN MESYLATE 2 MG TABLET PO SCH (20:14)
[2019-02-15] MEDS: SENNA 187 MG TABLET PO SCH (20:15)
[2019-02-15] MEDS: ATORVASTATIN CALCIUM 40 MG TABLET PO SCH (20:15)
[2019-02-16] MEDS: PANTOPRAZOLE SODIUM 40 MG DR TABLET PO SCH (05:45)
[2019-02-16 05:52] VITALS: BP 136/88
[2019-02-16 07:10] VITALS: BP 133/73
[2019-02-16] MEDS: CARVEDILOL 25 MG TABLET PO SCH ×2 (08:23→20:28)
[2019-02-16] MEDS: LOSARTAN POTASSIUM 50 MG TABLET PO SCH (08:23)
[2019-02-16] MEDS: AmLODIPine BESYLATE 5 MG TABLET PO SCH (08:23)
[2019-02-16] MEDS: MULTIVITAMINS WITH MINERALS, THERAPEUTIC TABLET PO SCH (08:24)
[2019-02-16] MEDS: COLD CREAM, SKIN EMOLLIENT 340 GM JAR TP SCH ×2 (08:24→20:28)
[2019-02-16] MEDS: DOCUSATE SODIUM 250 MG CAPSULE PO SCH ×2 (08:24→20:28)
[2019-02-16 15:55] VITALS: BP 154/83
[2019-02-16 20:25] VITALS: BP 144/97
[2019-02-16] MEDS: SENNA 187 MG TABLET PO SCH (20:28)
[2019-02-16] MEDS: ATORVASTATIN CALCIUM 40 MG TABLET PO SCH (20:28)
[2019-02-16] MEDS: DOXAZOSIN MESYLATE 2 MG TABLET PO SCH (20:28)
[2019-02-16 23:00] VITALS: BP 135/85
[2019-02-17] MEDS: PANTOPRAZOLE SODIUM 40 MG DR TABLET PO SCH (06:15)
[2019-02-17 07:37] VITALS: BP 136/89
[2019-02-17] MEDS: AmLODIPine BESYLATE 5 MG TABLET PO SCH (08:39)
[2019-02-17] MEDS: LOSARTAN POTASSIUM 50 MG TABLET PO SCH (08:39)
[2019-02-17] MEDS: CARVEDILOL 25 MG TABLET PO SCH ×2 (08:39→20:19)
[2019-02-17] MEDS: COLD CREAM, SKIN EMOLLIENT 340 GM JAR TP SCH ×2 (08:40→20:24)
[2019-02-17] MEDS: MULTIVITAMINS WITH MINERALS, THERAPEUTIC TABLET PO SCH (08:40)
[2019-02-17] MEDS: DOCUSATE SODIUM 250 MG CAPSULE PO SCH ×2 (08:40→20:18)
[2019-02-17 15:56] VITALS: BP 118/80
[2019-02-17 20:15] VITALS: BP 153/87
[2019-02-17] MEDS: SENNA 187 MG TABLET PO SCH (20:18)
[2019-02-17] MEDS: DOXAZOSIN MESYLATE 2 MG TABLET PO SCH (20:19)
[2019-02-17] MEDS: ATORVASTATIN CALCIUM 40 MG TABLET PO SCH (20:19)
[2019-02-17 23:00] VITALS: BP 131/79
[2019-02-18] MEDS: PANTOPRAZOLE SODIUM 40 MG DR TABLET PO SCH (06:22)
[2019-02-18 08:00] VITALS: BP 150/99
[2019-02-18] MEDS: LOSARTAN POTASSIUM 50 MG TABLET PO SCH (09:01)
[2019-02-18] MEDS: MULTIVITAMINS WITH MINERALS, THERAPEUTIC TABLET PO SCH (09:01)
[2019-02-18] MEDS: DOCUSATE SODIUM 250 MG CAPSULE PO SCH ×2 (09:01→19:33)
[2019-02-18] MEDS: CARVEDILOL 25 MG TABLET PO SCH ×2 (09:01→19:33)
[2019-02-18] MEDS: COLD CREAM, SKIN EMOLLIENT 340 GM JAR TP SCH ×2 (09:02→19:33)
[2019-02-18] MEDS: AmLODIPine BESYLATE 5 MG TABLET PO SCH (09:02)
[2019-02-18 13:00] VITALS: BP 127/71
[2019-02-18 16:00] VITALS: BP 139/69
[2019-02-18] MEDS: SENNA 187 MG TABLET PO SCH (19:33)
[2019-02-18] MEDS: ATORVASTATIN CALCIUM 40 MG TABLET PO SCH (19:33)
[2019-02-18] MEDS: DOXAZOSIN MESYLATE 2 MG TABLET PO SCH (19:33)
[2019-02-18 19:41] VITALS: BP 144/97
[2019-02-18] MEDS: MELATONIN 5 MG TABLET PO PRN (22:36)
[2019-02-19 00:10] VITALS: BP 137/78
[2019-02-19] MEDS: PANTOPRAZOLE SODIUM 40 MG DR TABLET PO SCH (06:01)
[2019-02-19 08:00] VITALS: BP 132/79
[2019-02-19] MEDS: CARVEDILOL 25 MG TABLET PO SCH ×2 (08:35→20:13)
[2019-02-19] MEDS: MULTIVITAMINS WITH MINERALS, THERAPEUTIC TABLET PO SCH (08:35)
[2019-02-19] MEDS: AmLODIPine BESYLATE 5 MG TABLET PO SCH (08:35)
[2019-02-19] MEDS: LOSARTAN POTASSIUM 50 MG TABLET PO SCH (08:35)
[2019-02-19] MEDS: COLD CREAM, SKIN EMOLLIENT 340 GM JAR TP SCH ×2 (08:35→20:14)
[2019-02-19] MEDS: DOCUSATE SODIUM 250 MG CAPSULE PO SCH ×2 (08:36→20:13)
[2019-02-19 15:30] VITALS: BP 136/74
[2019-02-19 20:11] VITALS: BP 135/90
[2019-02-19] MEDS: DOXAZOSIN MESYLATE 2 MG TABLET PO SCH (20:13)
[2019-02-19] MEDS: SENNA 187 MG TABLET PO SCH (20:13)
[2019-02-19] MEDS: MELATONIN 5 MG TABLET PO PRN (20:13)
[2019-02-19] MEDS: ATORVASTATIN CALCIUM 40 MG TABLET PO SCH (20:14)
[2019-02-20 04:37] VITALS: BP 135/80
[2019-02-20] MEDS: PANTOPRAZOLE SODIUM 40 MG DR TABLET PO SCH (06:01)
[2019-02-20 07:20] VITALS: BP 141/95
[2019-02-20] MEDS: CARVEDILOL 25 MG TABLET PO SCH ×2 (08:24→20:44)
[2019-02-20] MEDS: DOCUSATE SODIUM 250 MG CAPSULE PO SCH ×2 (08:24→20:44)
[2019-02-20] MEDS: MULTIVITAMINS WITH MINERALS, THERAPEUTIC TABLET PO SCH (08:25)
[2019-02-20] MEDS: AmLODIPine BESYLATE 5 MG TABLET PO SCH (08:25)
[2019-02-20] MEDS: COLD CREAM, SKIN EMOLLIENT 340 GM JAR TP SCH ×2 (08:25→20:44)
[2019-02-20] MEDS: LOSARTAN POTASSIUM 50 MG TABLET PO SCH (08:25)
[2019-02-20 15:58] VITALS: BP 124/86
[2019-02-20 20:39] VITALS: BP 122/85
[2019-02-20] MEDS: ATORVASTATIN CALCIUM 40 MG TABLET PO SCH (20:44)
[2019-02-20] MEDS: DOXAZOSIN MESYLATE 2 MG TABLET PO SCH (20:44)
[2019-02-20] MEDS: SENNA 187 MG TABLET PO SCH (20:44)
[2019-02-20] MEDS: MELATONIN 5 MG TABLET PO PRN (20:44)
[2019-02-21 05:00] VITALS: BP 138/78
[2019-02-21] MEDS: PANTOPRAZOLE SODIUM 40 MG DR TABLET PO SCH (05:42)
[2019-02-21 07:45] VITALS: BP 140/95
[2019-02-21] MEDS: CARVEDILOL 25 MG TABLET PO SCH ×2 (08:23→20:30)
[2019-02-21] MEDS: MULTIVITAMINS WITH MINERALS, THERAPEUTIC TABLET PO SCH (08:23)
[2019-02-21] MEDS: LOSARTAN POTASSIUM 50 MG TABLET PO SCH (08:23)
[2019-02-21] MEDS: DOCUSATE SODIUM 250 MG CAPSULE PO SCH ×2 (08:23→20:30)
[2019-02-21] MEDS: AmLODIPine BESYLATE 5 MG TABLET PO SCH (08:23)
[2019-02-21] MEDS: COLD CREAM, SKIN EMOLLIENT 340 GM JAR TP SCH ×2 (08:24→20:31)
[2019-02-21 15:00] VITALS: BP 130/75
[2019-02-21 20:00] VITALS: BP 139/83
[2019-02-21] MEDS: ATORVASTATIN CALCIUM 40 MG TABLET PO SCH (20:30)
[2019-02-21] MEDS: DOXAZOSIN MESYLATE 2 MG TABLET PO SCH (20:30)
[2019-02-21] MEDS: SENNA 187 MG TABLET PO SCH (20:30)
[2019-02-22 00:15] VITALS: BP 117/60
[2019-02-22] MEDS: PANTOPRAZOLE SODIUM 40 MG DR TABLET PO SCH (06:20)
[2019-02-22 07:45] VITALS: BP 128/81
[2019-02-22] MEDS: CARVEDILOL 25 MG TABLET PO SCH ×2 (08:49→19:14)
[2019-02-22] MEDS: MULTIVITAMINS WITH MINERALS, THERAPEUTIC TABLET PO SCH (08:49)
[2019-02-22] MEDS: LOSARTAN POTASSIUM 50 MG TABLET PO SCH (08:49)
[2019-02-22] MEDS: AmLODIPine BESYLATE 5 MG TABLET PO SCH (08:49)
[2019-02-22] MEDS: COLD CREAM, SKIN EMOLLIENT 340 GM JAR TP SCH ×2 (08:49→19:15)
[2019-02-22] MEDS: DOCUSATE SODIUM 250 MG CAPSULE PO SCH ×2 (08:57→19:12)
[2019-02-22 16:00] VITALS: BP 127/77
[2019-02-22 19:00] VITALS: BP 143/85
[2019-02-22] MEDS: SENNA 187 MG TABLET PO SCH (19:12)
[2019-02-22] MEDS: ATORVASTATIN CALCIUM 40 MG TABLET PO SCH (19:14)
[2019-02-22] MEDS: DOXAZOSIN MESYLATE 2 MG TABLET PO SCH (19:14)
[2019-02-22 23:40] VITALS: BP 120/70
[2019-02-23] MEDS: PANTOPRAZOLE SODIUM 40 MG DR TABLET PO SCH (05:56)
[2019-02-23 07:34] VITALS: BP 134/83
[2019-02-23] MEDS: DOCUSATE SODIUM 250 MG CAPSULE PO SCH ×2 (09:00→20:15)
[2019-02-23] MEDS: LOSARTAN POTASSIUM 50 MG TABLET PO SCH (09:16)
[2019-02-23] MEDS: COLD CREAM, SKIN EMOLLIENT 340 GM JAR TP SCH ×2 (09:16→20:15)
[2019-02-23] MEDS: CARVEDILOL 25 MG TABLET PO SCH ×2 (09:16→20:15)
[2019-02-23] MEDS: MULTIVITAMINS WITH MINERALS, THERAPEUTIC TABLET PO SCH (09:16)
[2019-02-23] MEDS: AmLODIPine BESYLATE 5 MG TABLET PO SCH (09:16)
[2019-02-23 15:02] VITALS: BP 131/81
[2019-02-23 20:13] VITALS: BP 120/71
[2019-02-23] MEDS: SENNA 187 MG TABLET PO SCH (20:15)
[2019-02-23] MEDS: ATORVASTATIN CALCIUM 40 MG TABLET PO SCH (20:15)
[2019-02-23] MEDS: DOXAZOSIN MESYLATE 2 MG TABLET PO SCH (20:15)
[2019-02-23] MEDS: MELATONIN 5 MG TABLET PO PRN (22:09)
[2019-02-23 23:19] VITALS: BP 124/73
[2019-02-24] MEDS: PANTOPRAZOLE SODIUM 40 MG DR TABLET PO SCH (06:05)
[2019-02-24 07:34] VITALS: BP 125/81
[2019-02-24] MEDS: MULTIVITAMINS WITH MINERALS, THERAPEUTIC TABLET PO SCH (08:10)
[2019-02-24] MEDS: CARVEDILOL 25 MG TABLET PO SCH ×2 (08:10→19:50)
[2019-02-24] MEDS: AmLODIPine BESYLATE 5 MG TABLET PO SCH (08:10)
[2019-02-24] MEDS: LOSARTAN POTASSIUM 50 MG TABLET PO SCH (08:10)
[2019-02-24] MEDS: DOCUSATE SODIUM 250 MG CAPSULE PO SCH ×2 (08:10→19:50)
[2019-02-24] MEDS: COLD CREAM, SKIN EMOLLIENT 340 GM JAR TP SCH ×3 (08:11→19:50)
[2019-02-24 15:02] VITALS: BP 138/79
[2019-02-24] MEDS: ATORVASTATIN CALCIUM 40 MG TABLET PO SCH (19:49)
[2019-02-24] MEDS: DOXAZOSIN MESYLATE 2 MG TABLET PO SCH (19:49)
[2019-02-24] MEDS: SENNA 187 MG TABLET PO SCH (19:49)
[2019-02-24 19:50] VITALS: BP 145/95
[2019-02-24 20:22] VITALS: BP 123/79
[2019-02-24 23:39] VITALS: BP 115/70
[2019-02-25] MEDS: PANTOPRAZOLE SODIUM 40 MG DR TABLET PO SCH (05:49)
[2019-02-25 07:00] VITALS: BP 127/86
[2019-02-25] MEDS: LOSARTAN POTASSIUM 50 MG TABLET PO SCH (08:08)
[2019-02-25] MEDS: DOCUSATE SODIUM 250 MG CAPSULE PO SCH ×2 (08:08→19:50)
[2019-02-25] MEDS: MULTIVITAMINS WITH MINERALS, THERAPEUTIC TABLET PO SCH (08:08)
[2019-02-25] MEDS: COLD CREAM, SKIN EMOLLIENT 340 GM JAR TP SCH ×2 (08:08→19:51)
[2019-02-25] MEDS: AmLODIPine BESYLATE 5 MG TABLET PO SCH (08:08)
[2019-02-25] MEDS: CARVEDILOL 25 MG TABLET PO SCH ×2 (08:08→19:51)
[2019-02-25 19:15] VITALS: BP 124/77
[2019-02-25 19:49] VITALS: BP 145/92
[2019-02-25] MEDS: ATORVASTATIN CALCIUM 40 MG TABLET PO SCH (19:50)
[2019-02-25] MEDS: SENNA 187 MG TABLET PO SCH (19:51)
[2019-02-25] MEDS: DOXAZOSIN MESYLATE 2 MG TABLET PO SCH (19:51)
[2019-02-26 05:10] VITALS: BP 134/81
[2019-02-26] MEDS: PANTOPRAZOLE SODIUM 40 MG DR TABLET PO SCH (06:31)
[2019-02-26 07:05] VITALS: BP 139/98
[2019-02-26] MEDS: MULTIVITAMINS WITH MINERALS, THERAPEUTIC TABLET PO SCH (08:33)
[2019-02-26] MEDS: LOSARTAN POTASSIUM 50 MG TABLET PO SCH (08:33)
[2019-02-26] MEDS: CARVEDILOL 25 MG TABLET PO SCH ×2 (08:33→20:30)
[2019-02-26] MEDS: AmLODIPine BESYLATE 5 MG TABLET PO SCH (08:34)
[2019-02-26] MEDS: COLD CREAM, SKIN EMOLLIENT 340 GM JAR TP SCH ×2 (08:34→20:30)
[2019-02-26] MEDS: DOCUSATE SODIUM 250 MG CAPSULE PO SCH ×2 (08:37→20:30)
[2019-02-26 15:53] VITALS: BP 138/81
[2019-02-26] MEDS: SENNA 187 MG TABLET PO SCH (20:30)
[2019-02-26] MEDS: ATORVASTATIN CALCIUM 40 MG TABLET PO SCH (20:30)
[2019-02-26] MEDS: DOXAZOSIN MESYLATE 2 MG TABLET PO SCH (20:30)
[2019-02-26] MEDS: MELATONIN 5 MG TABLET PO PRN (20:36)
[2019-02-26 20:38] VITALS: BP 149/88
[2019-02-27] MEDS: PANTOPRAZOLE SODIUM 40 MG DR TABLET PO SCH (05:37)
[2019-02-27 05:51] VITALS: BP 141/87
[2019-02-27 07:50] VITALS: BP 126/85
[2019-02-27] MEDS: MULTIVITAMINS WITH MINERALS, THERAPEUTIC TABLET PO SCH (08:14)
[2019-02-27] MEDS: CARVEDILOL 25 MG TABLET PO SCH ×2 (08:14→20:03)
[2019-02-27] MEDS: DOCUSATE SODIUM 250 MG CAPSULE PO SCH ×2 (08:14→20:09)
[2019-02-27] MEDS: COLD CREAM, SKIN EMOLLIENT 340 GM JAR TP SCH ×2 (08:14→20:03)
[2019-02-27] MEDS: AmLODIPine BESYLATE 5 MG TABLET PO SCH (08:14)
[2019-02-27] MEDS: LOSARTAN POTASSIUM 50 MG TABLET PO SCH (08:14)
[2019-02-27 13:26] VITALS: BP 113/66
[2019-02-27 15:58] VITALS: BP 131/80
[2019-02-27 19:53] VITALS: BP 128/88
[2019-02-27] MEDS: ATORVASTATIN CALCIUM 40 MG TABLET PO SCH (20:02)
[2019-02-27] MEDS: SENNA 187 MG TABLET PO SCH (20:03)
[2019-02-27] MEDS: DOXAZOSIN MESYLATE 2 MG TABLET PO SCH (20:03)
[2019-02-27] MEDS: MELATONIN 5 MG TABLET PO PRN (22:43)
[2019-02-27 23:00] VITALS: BP 130/64
[2019-02-28] MEDS: PANTOPRAZOLE SODIUM 40 MG DR TABLET PO SCH (06:14)
[2019-02-28 07:45] VITALS: BP 122/69
[2019-02-28] MEDS: AmLODIPine BESYLATE 5 MG TABLET PO SCH (08:17)
[2019-02-28] MEDS: LOSARTAN POTASSIUM 50 MG TABLET PO SCH (08:17)
[2019-02-28] MEDS: MULTIVITAMINS WITH MINERALS, THERAPEUTIC TABLET PO SCH (08:17)
[2019-02-28] MEDS: CARVEDILOL 25 MG TABLET PO SCH ×2 (08:17→19:59)
[2019-02-28] MEDS: DOCUSATE SODIUM 250 MG CAPSULE PO SCH ×2 (08:19→19:59)
[2019-02-28] MEDS: COLD CREAM, SKIN EMOLLIENT 340 GM JAR TP SCH ×2 (08:19→20:01)
[2019-02-28 15:23] VITALS: BP 143/94
[2019-02-28] MEDS: ATORVASTATIN CALCIUM 40 MG TABLET PO SCH (19:59)
[2019-02-28] MEDS: SENNA 187 MG TABLET PO SCH (19:59)
[2019-02-28] MEDS: DOXAZOSIN MESYLATE 2 MG TABLET PO SCH (19:59)
[2019-02-28] MEDS: MELATONIN 5 MG TABLET PO PRN (20:19)
[2019-02-28 20:37] VITALS: BP 131/73
[2019-02-28 23:34] VITALS: BP 124/72
[2019-03-01] MEDS: PANTOPRAZOLE SODIUM 40 MG DR TABLET PO SCH (06:33)
[2019-03-01 07:53] VITALS: BP 137/90
[2019-03-01] MEDS: CARVEDILOL 25 MG TABLET PO SCH (08:36)
[2019-03-01] MEDS: MULTIVITAMINS WITH MINERALS, THERAPEUTIC TABLET PO SCH (08:36)
[2019-03-01] MEDS: LOSARTAN POTASSIUM 50 MG TABLET PO SCH (08:36)
[2019-03-01] MEDS: AmLODIPine BESYLATE 5 MG TABLET PO SCH (08:36)
[2019-03-01] MEDS: DOCUSATE SODIUM 250 MG CAPSULE PO SCH (08:36)
[2019-03-01] MEDS: COLD CREAM, SKIN EMOLLIENT 340 GM JAR TP SCH (08:47)
== END 2019-03-01 12:48 | disposition home health service (06) | DRG 85 ==
LOC: 2WR 18:20
DX: S06.350A Traumatic hemorrhage of left cerebrum without loss of consciousness, initial encounter (principal); J96.00 Acute respiratory failure, unspecified whether with hypoxia or hypercapnia; I69.351 Hemiplegia and hemiparesis following cerebral infarction affecting right dominant side; G91.1 Obstructive hydrocephalus; I16.1 Hypertensive emergency; S02.40CA Maxillary fracture, right side, initial encounter for closed fracture; E11.9 Type 2 diabetes mellitus without complications; E66.9 Obesity, unspecified; E78.5 Hyperlipidemia, unspecified; I10 Essential (primary) hypertension; F32.9 Major depressive disorder, single episode, unspecified; G47.00 Insomnia, unspecified; G51.0 Bell's palsy; K59.00 Constipation, unspecified; M21.379 Foot drop, unspecified foot; E87.6 Hypokalemia; R13.10 Dysphagia, unspecified; W19.XXXA Unspecified fall, initial encounter; Z16.11 Resistance to penicillins; Z68.32 Body mass index [BMI] 32.0-32.9, adult; Z16.29 Resistance to other single specified antibiotic; Z82.49 Family history of ischemic heart disease and other diseases of the circulatory system; Z83.3 Family history of diabetes mellitus; Z79.899 Other long term (current) drug therapy; Z87.440 Personal history of urinary (tract) infections
CPT/HCPCS: 83036; 87081; 87086; 90732; 92507; 92508; 92523; 93970; 95816; 97032; 97110; 97112; 97116; 97150; 97162; 97166; 97530; 97535; 99366